=== PATIENT | male | born 1960 | race American Indian/Alaskan Native ===

== ENCOUNTER 2017-12-17 18:37 | Inpatient (IN) | payer SELFPAY ==
--- NOTE | 2017-12-17 19:24 | EDM.PDOC ---
ED HPI GENERAL MEDICAL PROBLEM - General Chief Complaint: Fever Stated Complaint: FLU SYMPTOMS,CHILLS Time Seen by Provider: 12/17/17 19:15 Source of Information: Reports: Patient, RN History Limitations: Reports: No Limitations - History of Present Illness INITIAL COMMENTS - FREE TEXT/NARRATIVE: 57 yo male presents with fever for nearly a week associated with a cough. Is a smoker. Has a BAXTER without stiff neck or vomiting. Not taking anything for his sx' s.. Has not been to his doctor. Not dizzy with standing. Has a ? subclavion port placed about a yr ago when he was being tx'd for Lyme's Dz. The port has been in disuse for about 6 mos and he just never went back to have it taken out. Onset Date: 12/11/17 Duration: Day(s):, Getting Worse Location: Reports: Head (headache), Chest (non-productive cough), Generalized. Denies: Face, Abdomen, Back Quality: Reports: Ache (headache) Severity: Moderate Improves with: Reports: None Worsens with: Reports: None Context: Reports: Other (unknown) Associated Symptoms: Reports: Cough, Fever/Chills, Headaches, Weakness. 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 Denies: Shortness of Breath, Wheezing, Pleuritic Chest Pain, Sputum, Hemoptysis Cardiovascular: Reports: No Symptoms GI/Abdominal: Reports: No Symptoms : Reports: No Symptoms Musculoskeletal: Reports: No Symptoms Skin: Reports: No Symptoms Neurological: Reports: No Symptoms ED EXAM, GENERAL - Physical Exam Exam: See Below Exam Limited By: No Limitations General Appearance: Alert, Lethargic, Thin Eye Exam: Bilateral Eye: Normal Inspection Ears: Normal External Exam, Normal Canal, Hearing Grossly Normal, Normal TMs Ear Exam: Bilateral Ear: Auricle Normal, Canal Normal, TM normal Nose: Normal Inspection, Normal Mucosa, No Blood Throat/Mouth: Normal Inspection, Normal Lips, Normal Oropharynx, Normal Voice, No Airway Compromise Head: Atraumatic, Normocephalic Neck: Normal Inspection, Supple, Non-Tender Respiratory/Chest: No Respiratory Distress, Lungs Clear, Normal Breath Sounds, No Accessory Muscle Use Cardiovascular: Regular Rate, Rhythm, No Edema, Tachycardia GI/Abdominal: Normal Bowel Sounds, Soft, Non-Tender, No Distention Back Exam: Normal Inspection. No: CVA Tenderness (R), CVA Tenderness (L) Extremities: Normal Inspection, Normal Range of Motion, Non-Tender, No Pedal Edema Neurological: Alert, Oriented, CN II-XII Intact, Normal Cognition, No Motor/ Sensory Deficits Psychiatric: Normal Affect, Normal Mood Skin Exam: Warm, Dry, Intact, Normal Color, No Rash Lymphatic: No Adenopathy Course - Vital Signs Last Recorded V/S: Last Vital Signs Temp 38.1 C 12/17/17 21:00 Pulse 63 12/17/17 21:00 Resp 20 12/17/17 21:00 BP 161/80 H 12/17/17 21:00 Pulse Ox 93 L 12/17/17 21:00 - Orders/Labs/Meds Orders: Active Orders 24 hr Category Date Time Status Chest 2V [CR] Stat Exams 12/17/17 19:33 Taken CULTURE BLOOD [BC] Stat Lab 12/17/17 19:47 Received CULTURE BLOOD [BC] Stat Lab 12/17/17 19:55 Received UA W/MICROSCOPIC [URIN] Stat Lab 12/17/17 20:58 Ordered Lactated Ringers [Ringers, Lactated] 1,000 ml Med 12/17/17 20:46 Active IV BOLUS Medication Orders Lactated Ringer's (Ringers, Lactated) 1,000 mls @ 1,000 mls/hr IV BOLUS ONE Stop: 12/17/17 21:45 Last Admin: 12/17/17 20:58 Dose: 1,000 mls/hr Labs: Laboratory Tests 12/17/17 12/17/17 12/17/17 Range/Units 19:17 19:20 20:31 WBC 30.1 H* (4.5-11.0) K/uL RBC 4.21 L (4.30-5.90) M/uL Hgb 11.9 L (12.0-15.0) g/dL Hct 35.0 L (40.0-54.0) % MCV 83 (80-98) fL MCH 28 (27-31) pg MCHC 34 (32-36) % Plt Count 178 (150-400) K/uL Sodium 129 L (140-148) mmol/L Potassium 3.7 (3.6-5.2) mmol/L Chloride 95 L (100-108) mmol/L Carbon Dioxide 22 (21-32) mmol/L Anion Gap 15.7 H (5.0-14.0) mmol/L BUN 26 H D (7-18) mg/dL Creatinine 2.1 H D (0.8-1.3) mg/dL Est Cr Clr Drug Dosing 43.62 mL/min Estimated GFR (MDRD) 33 L (>60) Glucose 159 H (74-106) mg/dL Lactic Acid 2.0 (0.4-2.0) mmol/L Calcium 8.0 L (8.5-10.1) mg/dL Meds: Medications Generic Name Dose Route Start Last Admin Trade Name Freq PRN Reason Stop Dose Admin Lactated Ringer's 1,000 mls @ 1,000 mls/hr 12/17/17 20:46 12/17/17 20:58 Ringers, Lactated IV 12/17/17 21:45 1,000 mls/hr BOLUS ONE Administration Discontinued Medications Generic Name Dose Route Start Last Admin Trade Name Freq PRN Reason Stop Dose Admin Acetaminophen 1,000 mg 12/17/17 19:34 12/17/17 19:55 Tylenol Extra Strength PO 12/17/17 19:35 1,000 mg ONETIME ONE Administration Lactated Ringer's 1,000 mls @ 1,000 mls/hr 12/17/17 19:34 12/17/17 19:50 Ringers, Lactated IV 12/17/17 20:33 1,000 mls/hr BOLUS ONE Administration - Radiology Interpretation Free Text/Narrative:: CXR-no acute findings Departure - Departure Time of Disposition: 21:15 Disposition: Admitted As Inpatient 68 Condition: Poor Clinical Impression: Dehydration, Medical non-compliance Central line infection Qualifiers: Encounter type: initial encounter Qualified Code(s): T80.219A - Unspecified infection due to central venous catheter, initial encounter - Discharge Information Referrals: PCP,None [Primary Care Provider] - Forms: ED Department Discharge - My Orders Last 24 Hours: My Active Orders 12/17/17 19:33 Chest 2V [CR] Stat 12/17/17 19:47 CULTURE BLOOD [BC] Stat 12/17/17 19:55 CULTURE BLOOD [BC] Stat 12/17/17 20:46 Lactated Ringers [Ringers, Lactated] 1,000 ml IV BOLUS 12/17/17 20:58 UA W/MICROSCOPIC [URIN] Stat - Assessment/Plan Last 24 Hours: My Active Orders 12/17/17 19:33 Chest 2V [CR] Stat 12/17/17 19:47 CULTURE BLOOD [BC] Stat 12/17/17 19:55 CULTURE BLOOD [BC] Stat 12/17/17 20:46 Lactated Ringers [Ringers, Lactated] 1,000 ml IV BOLUS 12/17/17 20:58 UA W/MICROSCOPIC [URIN] Stat
[2017-12-17] MEDS ORDERED: Acetaminophen 500 MG Tab PO ONE (19:34)
[2017-12-17] MEDS ORDERED: Lactated Ringers 1,000 ML IV ONE ×2 (19:34→20:46)
[2017-12-17] MEDS ORDERED: Bacitracin Oint 1 GM U/D Packet TOP ONE (21:17)
[2017-12-17] MEDS ORDERED: ceFAZolin 1 GM Vial ONE (22:17)
[2017-12-17] MEDS ORDERED: Sodium Chloride 0.9% 50 ML ONE (22:18)
--- NOTE | 2017-12-17 22:23 | PCM.HP ---
H&P History of Present Illness - General Admit Problem/Dx: Admission Diagnosis/Problem Admission Diagnosis/Problem Catheter-related bloodstream infection Source of Information: Patient (Patient extremely shy will not answer questions except for 1 word, yes or no or nods head.), Family (Significant other) History Limitations: Reports: Other (Reluctant to give history of present illness) - History of Present Illness Initial Comments - Free Text/Narative: 57 yo male presents with fever for nearly a week associated with a cough. Is a smoker approximately one pack per day, . Has a BAXTER without stiff neck or vomiting. Not taking anything for his sx's.. Has not been to his doctor. Not dizzy with standing. Has a ? subclavion port placed about a yr ago when he was being tx'd for Lyme's disease . The port has been in disuse for about 6 mos and he just never went back to have it taken out. While in the emergency room, his central line was removed by nurse practitioner. The area was cleansed with Betadine, central line sutures were dissolved due to large scab and mucus. The central line was easily removed, intact. Catheter tip was placed in sterile container sent for culture and sensitivity. Pressure applied to access site for 5 minutes, no further bleeding observed. Applied bacitracin and bandage. Area rechecked at 20 minutes no further bleeding is noted. Discussed hospital admission with Mr. sánchez and his partner agree with plan of care. Onset of Symptoms: Reports: Gradual Duration of Symptoms: Reports: Week(s): (1) Location: Reports: Generalized (Fever and chills, sweats.) Severity: Severe Improves with: Reports: None Worsens with: Reports: None Associated Symptoms: Reports: Diaphoresis, Fever/Chills, Headaches, Malaise - Related Data Allergies/Adverse Reactions: Allergies Allergy/AdvReac Type Severity Reaction Status Date / Time No Known Allergies Allergy Verified 12/17/17 18:56 Home Medications: Home Meds NK [No Known Home Meds] 01/29/16 [History] Past Medical History - Past Health History Medical/Surgical History: Denies Medical/Surgical History Genitourinary History: Reports: Dialysis, Other (See Below) 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 - Infectious Disease History Infectious Disease History: Reports: Other (See Below) Other Infectious Disease History: unable to obtain Social & Family History - Family History Family Medical History: Unobtainable Oncologic: Reports: Other (See Below) (Significant other reports no history of MRSA in patient or other family members.) - Tobacco Use Smoking Status *Q: Current Every Day Smoker Years of Tobacco use: 40 Packs/Tins Daily: 1 - Caffeine Use Caffeine Use: Reports: Coffee, Soda - Recreational Drug Use Recreational Drug Use: No - Living Situation & Occupation Living situation: Reports: with Significant Other H&P Review of Systems - Review of Systems: Review Of Systems: Unable To Obtain (Mr. Brown is a very difficult historian and answers questions and one-word yes or no or his significant other answers all questions.) General: Reports: Fever, Chills, Malaise, Decreased Appetite HEENT: Reports: No Symptoms Pulmonary: Reports: Cough, Other (Tobacco use one pack per day) Cardiovascular: Reports: No Symptoms Gastrointestinal: Reports: No Symptoms Genitourinary: Reports: No Symptoms Musculoskeletal: Reports: No Symptoms Skin: Reports: No Symptoms Psychiatric: Reports: No Symptoms Neurological: Reports: No Symptoms Hematologic/Lymphatic: Reports: No Symptoms Immunologic: Reports: No Symptoms Review of Systems Comment:: Patient's significant other reports history of Lyme's disease with antibiotic treatment 6 months, central line placed one year ago, has not been used for 6 months. Reports has not flushed Port-A-Cath or did any cares for the past 6 months. Exam - Exam Exam: See Below - Vital Signs Vital Signs: Last Vital Signs Temp 38.1 C 12/17/17 21:00 Pulse 63 12/17/17 21:00 Resp 20 12/17/17 21:00 BP 161/80 H 12/17/17 21:00 Pulse Ox 93 L 12/17/17 21:00 Weight: 96 kg - Exam General: Alert, Cooperative, Moderate Distress (Diaphoretic) HEENT: PERRLA, Conjunctiva Clear, EACs Clear, Hearing Intact, Mucosa Moist & [place]ier[place], Nares Patent, Normal Nasal Septum, Posterior Pharynx Clear, Pupils Equal, Pupils Reactive, TMs Clear Neck: Supple, Trachea Midline Lungs: Clear to Auscultation, Normal Respiratory Effort Cardiovascular: Regular Rate, Regular Rhythm, Normal S1, Normal S2 GI/Abdominal Exam: Normal Bowel Sounds, Soft, Non-Tender (Male) Exam: Deferred Rectal (Males) Exam: Deferred Back Exam: Normal Inspection, Full Range of Motion Extremities: Normal Inspection, Normal Range of Motion (N), Non-Tender, Pedal Edema Skin: Warm, Dry, Intact, Wound (From recent removal of central line) Neurological: Reflexes Equal Bilateral Neuro Extensive - Mental Status: Alert, Normal Mood/Affect Neuro Extensive - Motor, Sensory, Reflexes: Motor/Sensory Deficits Psychiatric: Alert - Patient Data Lab Results Last 24 hrs: Laboratory Results - last 24 hr 12/17/17 12/17/17 12/17/17 Range/Units 19:17 19:20 20:31 WBC 30.1 H* (4.5-11.0) K/uL RBC 4.21 L (4.30-5.90) M/uL Hgb 11.9 L (12.0-15.0) g/dL Hct 35.0 L (40.0-54.0) % MCV 83 (80-98) fL MCH 28 (27-31) pg MCHC 34 (32-36) % Plt Count 178 (150-400) K/uL Sodium 129 L (140-148) mmol/L Potassium 3.7 (3.6-5.2) mmol/L Chloride 95 L (100-108) mmol/L Carbon Dioxide 22 (21-32) mmol/L Anion Gap 15.7 H (5.0-14.0) mmol/L BUN 26 H D (7-18) mg/dL Creatinine 2.1 H D (0.8-1.3) mg/dL Est Cr Clr Drug Dosing 43.62 mL/min Estimated GFR (MDRD) 33 L (>60) Glucose 159 H (74-106) mg/dL Lactic Acid 2.0 (0.4-2.0) mmol/L Calcium 8.0 L (8.5-10.1) mg/dL Urine Color Urine Appearance Urine pH (4.5-8.0) Ur Specific [place] (1.008-1.030) Urine Protein (NEGATIVE) mg/dL Urine Glucose (UA) (NEGATIVE) mg/dL Urine Ketones (NEGATIVE) mg/dL Urine Occult Blood (NEGATIVE) Urine Nitrite (NEGAITVE) Urine Bilirubin (NEGATIVE) Urine Urobilinogen (NORMAL) mg/dL Ur Leukocyte Esterase (NEGATIVE) Urine RBC (0-5) Urine WBC (0-5) Ur Epithelial Cells Amorphous Sediment Urine Bacteria Urine Mucus 12/17/17 Range/Units 20:58 WBC (4.5-11.0) K/uL RBC (4.30-5.90) M/uL Hgb (12.0-15.0) g/dL Hct (40.0-54.0) % MCV (80-98) fL MCH (27-31) pg MCHC (32-36) % Plt Count (150-400) K/uL Sodium (140-148) mmol/L Potassium (3.6-5.2) mmol/L Chloride (100-108) mmol/L Carbon Dioxide (21-32) mmol/L Anion Gap (5.0-14.0) mmol/L BUN (7-18) mg/dL Creatinine (0.8-1.3) mg/dL Est Cr Clr Drug Dosing mL/min Estimated GFR (MDRD) (>60) Glucose (74-106) mg/dL Lactic Acid (0.4-2.0) mmol/L Calcium (8.5-10.1) mg/dL Urine Color [place] Urine Appearance Clear Urine pH 5.0 (4.5-8.0) Ur Specific [place] 1.020 (1.008-1.030) Urine Protein 100 H (NEGATIVE) mg/dL Urine Glucose (UA) Normal (NEGATIVE) mg/dL Urine Ketones Negative (NEGATIVE) mg/dL Urine Occult Blood Large (NEGATIVE) Urine Nitrite Negative (NEGAITVE) Urine Bilirubin Moderate (NEGATIVE) Urine Urobilinogen 8 (NORMAL) mg/dL Ur Leukocyte Esterase Negative (NEGATIVE) Urine RBC 10-20 H (0-5) Urine WBC 0-5 (0-5) Ur Epithelial Cells Not seen Amorphous Sediment Few Urine Bacteria Not seen Urine Mucus Not seen Result Diagrams: 12/17/17 19:17 12/17/17 19:20 *Q Meaningful Use (ADM) - VTE *Q VTE Criteria *Q: - Stroke *Q Stroke Criteria *Q: - AMI *Q AMI Criteria *Q: - Problem List (1) Central line infection SNOMED Code(s): 329554016 ICD Code: T80.219A - UNSP INFECTION DUE TO CENTRAL VENOUS CATHETER, INIT ENCNTR Status: Acute Priority: High Current Visit: Yes Qualifiers: Encounter type: initial encounter Qualified Code(s): T80.219A - Unspecified infection due to central venous catheter, initial encounter (2) Dehydration SNOMED Code(s): 46869109 ICD Code: E86.0 - DEHYDRATION Status: Acute Priority: High Current Visit: Yes (3) Kidney disease Status: Acute Current Visit: Yes Problem List Initiated/Reviewed/Updated: Yes Orders Last 24hrs: Active Orders 24 hr Category Date Time Status Patient Status Manage Transfer [TRANSFER] Routine ADT 12/17/17 21:49 Active Chest 2V [CR] Stat Exams 12/17/17 19:33 Taken CULTURE BLOOD [BC] Stat Lab 12/17/17 19:47 Received CULTURE BLOOD [BC] Stat Lab 12/17/17 19:55 Received CULTURE CATHETER TIP [RM] Stat Lab 12/17/17 21:43 Received ceFAZolin [Ancef] 1 gm Med 12/18/17 04:00 Ordered Sodium Chloride 0.9% [Normal Saline] 50 ml IV Q6HR ceFAZolin [Ancef] 1,000 mg Med 12/17/17 21:30 Active Sodium Chloride 0.9% [Normal Saline] 50 ml IV Q6H Resuscitation Status Routine Resus Stat 12/17/17 22:07 Ordered Medication Orders Cefazolin Sodium 1,000 mg/ (Sodium Chloride) 50 mls @ 100 mls/hr IV Q6H JENN Cefazolin Sodium 1 gm/ Sodium (Chloride) 50 mls @ 100 mls/hr IV Q6HR JENN Assessment/Plan Comment:: ASSESSMENT / PLAN This is a 57-year-old male presents emergency room with his significant other, reported a one-week history of fever, chills and sweating. History was obtained from his significant other as patient would only answer yes or no questions, appears to be extremely shy. It was also noted during ER evaluation patient had a right subclavian central line that had had not been used for the past 6 months. His significant other reports central line placed one year ago for treatment of Lyme's disease, had 6 months of IV therapy, central line has not been in use for the past 6 months. There is no history of MRSA infection in patient or other family members. Labs showed a elevated white count at 30.1, hemoglobin 11.9, hematocrit 35, sodium 129, Potassium 3.7, chloride 95, ion gap 15.7, BUN 26, creatinine 2.1, GFR 33, lactic acid 2.0, calcium 8, urine orange positive large blood positive RBCs 10-20, blood cultures 2 pending, central central line catheter culture and sensitivity pending. Medications , lactated Ringer's 2 L , maintenance IV fluids normal saline at 125ml/hr., Ancef 1 g IV every 6 hours. Plan admission to hospital for further care and treatment . central line infection, dehydration -Admit to [address] [place] [address] for further monitoring -IV Fluids for rehydration NS at 125 mL per hour -IV Antibiotic: Ancef 1 gram IV every 6 hours. -Advise to notify nurses of any chest pain or other symptoms -blood cultures x2 pending, catheter tip culture pending -And a.m. labs: CBC, BMP Kidney disease -History of acute renal failure with dialysis. -monitor I & O -Creatinine 2.1 and GFR 33 -Recheck BMP in a.m. Tobacco use -Nicotine patch 21 mcg daily Maintenance issues -Orders home meds: no chronic meds -Nutrition: regular diet -Varner catheter not indicated at this time -DVT: Lovenox 40 mg subcut daily -PPI: IV Protonix 40mg daily CODE STATUS: FULL CODE Admission status: Admit to [address] [place] [address] Admission justification. This patient will be admitted for inpatient services and is medically appropriate meeting medical necessity for inpatient admission as outlined in my documentation. I reasonably expect the patient will require inpatient services that span. Time over 2 midnights. I reasonably expect this patient to be discharged or transferred within 96 hours after admission to the critical access hospital. Disposition: Home with Family [facility] Hospitalist: Dr. Naqvi
[2017-12-17] MEDS ORDERED: LORazepam 2 MG/ML SDV IV PRN (22:45)
[2017-12-17] MEDS ORDERED: Ondansetron 4 MG Tab.DIS PO PRN (22:45)
[2017-12-17] MEDS ORDERED: Docusate Sodium 100 MG Cap PO PRN (22:45)
[2017-12-17] MEDS ORDERED: Zolpidem 5 MG Tab PO PRN (22:45)
[2017-12-17] MEDS ORDERED: Morphine 2 MG/ML Syringe IVPUSH PRN (22:45)
[2017-12-17] MEDS ORDERED: oxyCODONE 5 MG Tab PO PRN (22:45)
[2017-12-17] MEDS ORDERED: Acetaminophen 325 MG Tab PO PRN (22:45)
[2017-12-17] MEDS ORDERED: Albuterol 0.083% 2.5 MG/3 ML Neb Soln NEB PRN (22:45)
[2017-12-17] MEDS ORDERED: Ondansetron 4 MG/2 ML SDV IV PRN (22:45)
[2017-12-17] MEDS: Sodium Chloride 0.9% 1,000 ML IV SCH (23:04)
[2017-12-17] MEDS: Ibuprofen 600 MG Tab PO PRN (23:10)
[2017-12-17] MEDS: Nicotine 21 MG/24 Hr Patch TRDERM SCH (23:10)
[2017-12-18] MEDS ORDERED: ceFAZolin 1 GM in Sodium Chloride 0.9% 50 ML IV SCH (04:00)
[2017-12-18] MEDS ORDERED: ceFAZolin 1 GM Vial ONE (04:34)
[2017-12-18] MEDS ORDERED: Sodium Chloride 0.9% 50 ML ONE (04:36)
--- NOTE | 2017-12-18 06:40 | PCM.SN ---
- Free Text/Narrative Note: Time 06:20, call from 2 [facility] O: positive blood cultures x2; gram positive cocci afebrile, labs improved, wbc decreased to 25.9 a: central line infection p; continue Ancef 1 gram every 6 hours. continue present plan of care.
[2017-12-18] MEDS: Sodium Chloride 0.9% 1,000 ML IV SCH (07:21)
[2017-12-18] MEDS ORDERED: Pantoprazole 40 MG Vial IVPUSH SCH (09:00)
[2017-12-18] MEDS ORDERED: Enoxaparin 40 MG/0.4 ML Syringe SUBCUT SCH (09:00)
[2017-12-18] MEDS: Nicotine 21 MG/24 Hr Patch TRDERM SCH (09:07)
[2017-12-18] MEDS: ceFAZolin 1 GM in Premix Bag 1 BAG IV SCH ×2 (09:08→15:22)
--- NOTE | 2017-12-18 11:51 | PCM.PN ---
- General Info Date of Service: 12/18/17 Subjective Update: Mr. Corrales is a 57-year-old gentleman who was admitted last night through the emergency department with weakness, leukocytosis, fever, secondary to a central line infection. He had a previous history of Lyme's disease in the central line was placed for IV antibiotic therapy. Antibiotics were discontinued approximately 6 months ago and he never returned to have the central line removed. Over the past few days is become progressively more weak. Evaluation in the emergency department showed no other obvious source of infection. Central line was removed and the tip has been cultured, blood cultures were also obtained and are growing gram-positive cocci. White count has improved with current antibiotic therapy and he has remained afebrile. Functional Status: Reports: Tolerating Diet, Urinating - Review of Systems General: Reports: Weakness. Denies: Fever, Chills Pulmonary: Reports: No Symptoms Cardiovascular: Reports: No Symptoms Gastrointestinal: Reports: No Symptoms - Patient Data Vitals - Most Recent: Last Vital Signs Temp 97.9 F 12/18/17 10:49 Pulse 116 H 12/18/17 10:49 Resp 20 12/18/17 10:49 BP 148/114 H 12/18/17 10:49 Pulse Ox 97 12/18/17 10:49 Weight - Most Recent: 211 lb 10.3 oz I&O - Last 24 Hours: Intake & Output 12/17/17 12/18/17 12/18/17 22:59 06:59 14:59 Intake Total 1392 Balance 1392 Lab Results Last 24 Hours: Laboratory Results - last 24 hr 12/18/17 12/18/17 Range/Units 05:32 05:32 WBC 25.9 H (4.5-11.0) K/uL RBC 3.81 L (4.30-5.90) M/uL Hgb 11.0 L (12.0-15.0) g/dL Hct 31.9 L (40.0-54.0) % MCV 84 (80-98) fL MCH 29 (27-31) pg MCHC 35 (32-36) % Plt Count 142 L (150-400) K/uL Neut % (Auto) 91 H (36-66) % Lymph % (Auto) 3 L (24-44) % [place] % (Auto) 7 H (2-6) % Eos % (Auto) 0 L (2-4) % Baso % (Auto) 0 (0-1) % Sodium 135 L (140-148) mmol/L Potassium 3.4 L (3.6-5.2) mmol/L Chloride 102 (100-108) mmol/L Carbon Dioxide 23 (21-32) mmol/L Anion Gap 13.4 (5.0-14.0) mmol/L BUN 28 H (7-18) mg/dL Creatinine 1.9 H (0.8-1.3) mg/dL Est Cr Clr Drug Dosing 48.22 mL/min Estimated GFR (MDRD) 37 L (>60) Glucose 132 H (74-106) mg/dL Calcium 7.6 L (8.5-10.1) mg/dL Med Orders - Current: Current Medications Acetaminophen (Tylenol) 650 mg PO Q4H PRN PRN Reason: Pain (Mild 1-3)/fever Albuterol (Proventil Neb Soln) 2.5 mg NEB Q4H PRN PRN Reason: Shortness Of Breath/wheezing Docusate Sodium (Colace) 100 mg PO BID PRN PRN Reason: Constipation Enoxaparin Sodium (Lovenox) 40 mg SUBCUT DAILY [facility] Last Admin: 12/18/17 09:08 Dose: 40 mg Cefazolin Sodium/Dextrose 1 gm (/ Premix) 50 mls @ 100 mls/hr IV Q6H [facility] Last Admin: 12/18/17 09:08 Dose: 100 mls/hr Ibuprofen (Motrin) 600 mg PO Q6H PRN PRN Reason: Pain/Fever Last Admin: 12/17/17 23:10 Dose: 600 mg Lorazepam (Ativan) 1 mg IV Q6H PRN PRN Reason: Nausea/Vomiting Morphine Sulfate (Morphine) 2 mg IVPUSH Q2H PRN PRN Reason: Pain (severe 7-10) Nicotine (Habitrol) 21 mg TRDERM DAILY [facility] Last Admin: 12/18/17 09:07 Dose: 21 mg Ondansetron HCl (Zofran Odt) 4 mg PO Q6H PRN PRN Reason: Nausea able to take PO Ondansetron HCl (Zofran) 4 mg IV Q4H PRN PRN Reason: Nausea/Vomiting Oxycodone HCl (Oxycodone) 5 mg PO Q4H PRN PRN Reason: Pain (moderate 4-6) Pantoprazole Sodium (Protonix Iv) 40 mg IVPUSH DAILY [facility] Last Admin: 12/18/17 09:07 Dose: 40 mg Potassium Chloride (Klor-Con M20) 40 meq PO ONETIME ONE Stop: 12/18/17 11:44 Potassium Chloride (Klor-Con M20) 40 meq PO ONETIME ONE Stop: 12/18/17 17:01 Zolpidem Tartrate (Ambien) 5 mg PO BEDTIME PRN PRN Reason: Sleep Discontinued Medications Acetaminophen (Tylenol Extra Strength) 1,000 mg PO ONETIME ONE Stop: 12/17/17 19:35 Last Admin: 12/17/17 19:55 Dose: 1,000 mg Bacitracin (Bacitracin Oint 1 Gm) 1 dose TOP ONETIME ONE Stop: 12/17/17 21:18 Last Admin: 12/17/17 21:40 Dose: 1 dose Cefazolin Sodium (Ancef) Confirm Administered Dose 1 gm .ROUTE .STK-MED ONE Stop: 12/18/17 04:35 Last Admin: 12/18/17 04:42 Dose: Not Given Lactated Ringer's (Ringers, Lactated) 1,000 mls @ 1,000 mls/hr IV BOLUS ONE Stop: 12/17/17 20:33 Last Admin: 12/17/17 19:50 Dose: 1,000 mls/hr Lactated Ringer's (Ringers, Lactated) 1,000 mls @ 1,000 mls/hr IV BOLUS ONE Stop: 12/17/17 21:45 Last Admin: 12/17/17 20:58 Dose: 1,000 mls/hr Cefazolin Sodium 1,000 mg/ (Sodium Chloride) 50 mls @ 100 mls/hr IV Q6H [facility] Last Admin: 12/17/17 22:31 Dose: 100 mls/hr Sodium Chloride (Normal Saline) Confirm Administered Dose 50 mls @ as directed .ROUTE .STK-MED ONE Stop: 12/17/17 22:19 Last Admin: 12/17/17 22:35 Dose: Not Given Sodium Chloride (Normal Saline) 1,000 mls @ 125 mls/hr IV ASDIRECTED [facility] Last Admin: 12/18/17 07:21 Dose: 125 mls/hr Cefazolin Sodium 1,000 mg/ (Sodium Chloride) 50 mls @ 100 mls/hr IV Q6H [facility] Last Admin: 12/18/17 04:38 Dose: 100 mls/hr Sodium Chloride (Normal Saline) Confirm Administered Dose 50 mls @ as directed .ROUTE .STK-MED ONE Stop: 12/18/17 04:37 Last Admin: 12/18/17 04:42 Dose: Not Given - Exam Quality Assessment: DVT Prophylaxis General: Alert, Oriented, Cooperative, No Acute Distress Lungs: Clear to Auscultation, Normal Respiratory Effort Cardiovascular: Regular Rate, Regular Rhythm, No Murmurs GI/Abdominal Exam: Soft, Non-Tender, No Organomegaly, No Distention Extremities: Non-Tender, No Pedal Edema - Problem List Review Problem List Initiated/Reviewed/Updated: Yes - My Orders Last 24 Hours: My Active Orders 12/18/17 11:42 Convert IV to Saline Lock [OM.PC] Routine 12/18/17 11:43 Potassium Chloride [Klor-Con M20] 40 meq PO ONETIME ONE 12/18/17 17:00 Potassium Chloride [Klor-Con M20] 40 meq PO ONETIME ONE 12/19/17 05:00 BASIC METABOLIC PANEL,BMP [CHEM] Timed CBC WITH AUTO DIFF [HEME] Timed - Plan Plan:: ASSESSMENT / PLAN CENTRAL LINE INFECTION, DEHYDRATION-improved since admission, hemodynamically stable and afebrile. Cultures growing gram positive cocci, further ID and sensitivities pending -Saline lock IV -IV Antibiotic: Ancef 1 gram IV every 6 hours. -blood cultures x2 pending, catheter tip culture pending Kidney disease-renal function modestly improved since admission with hydration -Continue to closely monitor urine output and renal function Tobacco use -Nicotine patch 21 mcg daily Maintenance issues -Nutrition: regular diet -Varner catheter not indicated at this time -DVT: Lovenox 40 mg subcut daily -PPI: IV Protonix 40mg daily CODE STATUS: FULL CODE Admission status: Admit to [address] [place] [address] justification. This patient will be admitted for inpatient services and is medically appropriate meeting medical necessity for inpatient admission as outlined in my documentation. I reasonably expect the patient will require inpatient services that span. Time over 2 midnights. I reasonably expect this patient to be discharged or transferred within 96 hours after admission to the . Disposition: Home with Family [facility]: Dr. Naqvi
[2017-12-18] MEDS ORDERED: Potassium Chloride 20 MEQ Tab.ER PO ONE ×2 (12:10→17:00)
[2017-12-18] MEDS ORDERED: Lactated Ringers 1,000 ML IV ONE ×2 (13:45→19:30)
[2017-12-18] MEDS: Ibuprofen 600 MG Tab PO PRN (18:31)
[2017-12-18] MEDS ORDERED: Acetaminophen 1,000 MG in Premix Bag 1 BAG IV ONE (19:18)
[2017-12-18] MEDS: Lactated Ringers 1,000 ML IV SCH ×2 (19:31→21:56)
[2017-12-18] MEDS ORDERED: Vancomycin 1 GM SDV IV SCH (20:00)
[2017-12-18] MEDS ORDERED: Diltiazem 25 MG/5 ML SDV IVPUSH ONE ×2 (20:43→22:16)
[2017-12-18] MEDS ORDERED: Diltiazem 100 MG in Sodium Chloride 0.9% 100 ML IV SCH (20:45)
[2017-12-18] MEDS ORDERED: Diltiazem 25 MG/5 ML SDV ONE (22:21)
[2017-12-18 22:28] VITALS: BP 143/94
--- NOTE | 2017-12-18 22:29 | PCM.DCSUM1 ---
Discharge Summary - Hospital Course Brief History: Mr. Corrales is a 57-year-old gentleman who was admitted through the emergency department with fever, weakness, leukocytosis, secondary to a central line infection, present on admission. - Discharge Data Discharge Date: 12/18/17 Discharge Disposition: DC/Tfer to Acute Hospital 02 Condition: Serious - Discharge Diagnosis/Problem(s) (1) CKD (chronic kidney disease) stage 3, GFR 30-59 ml/min SNOMED Code(s): 090235740 ICD Code: N18.3 - CHRONIC KIDNEY DISEASE, STAGE 3 (MODERATE) Status: Acute Current Visit: Yes (2) NSTEMI (non-ST elevated myocardial infarction) SNOMED Code(s): 708101115 ICD Code: I21.4 - NON-ST ELEVATION (NSTEMI) MYOCARDIAL INFARCTION Status: Acute Current Visit: Yes (3) Sepsis SNOMED Code(s): 21638606 ICD Code: A41.9 - SEPSIS, UNSPECIFIED ORGANISM Status: Acute Current Visit: No (4) Atrial fibrillation with rapid ventricular response SNOMED Code(s): 435893058973670 ICD Code: I48.91 - UNSPECIFIED ATRIAL FIBRILLATION Status: Acute Current Visit: No (5) Dehydration SNOMED Code(s): 21631605 ICD Code: E86.0 - DEHYDRATION Status: Acute Priority: High Current Visit: Yes (6) Central line infection SNOMED Code(s): 870033521 ICD Code: T80.219A - UNSP INFECTION DUE TO CENTRAL VENOUS CATHETER, INIT ENCNTR Status: Acute Priority: High Current Visit: Yes Qualifiers: Encounter type: initial encounter Qualified Code(s): T80.219A - Unspecified infection due to central venous catheter, initial encounter - Patient Summary/Data Hospital Course: Mr. Corrales is a 57-year-old gentleman who is admitted through the emergency department on the evening of December 17 with fever and weakness secondary to a central line infection(present on admission) and sepsis. He had had a catheter placed in the right subclavian vein approximately one year ago for dialysis renal function improved and the catheter did not been used over the past 6 months. On evaluation in the emergency department there were no obvious infiltrates on chest x-ray or evidence of urinary infection. Abdominal exam was unremarkable and there was no other obvious source of infection identified. White blood cell count was significantly elevated at 30,000. Blood cultures were obtained in the emergency department and the central line was removed. After removal the tip was sent for culture. He was given IV fluids and started on IV antibiotic therapy with cefazolin. He was found to have elevated creatinine of 1.9 with a GFR of 33 at the time of admission, baseline renal function unknown. By the following morning he was feeling somewhat improved and had remained afebrile through the night, white blood cell count had improved to 25,000. He was able to eat breakfast and denied other significant symptoms. On the evening of transfer he developed recurrent temperature elevation to 103.7. Associated with this was an increase in heart rate to the range of 160-170. He denied any symptoms of chest pain or pressure and denied shortness of breath. Respiratory rate did increase during this period of time into the mid 30s. He was given Tylenol and IV fluids. EKG was obtained which showed atrial fibrillation with rapid ventricular response. These episodes along was discontinued and he was started on vancomycin and meropenem pending final culture results. He was transferred to the intensive care unit and given a bolus dose of diltiazem at 20 mg and started on a continuous infusion of diltiazem at 5 mg per hour. Initially this did result in significant improvement in heart rate down close to 100. Prior to transfer heart rate crept up into the 120s and 130s, he was given additional bolus of diltiazem at 10 mg with the continuous rate increased to 10 mg per hour. Laboratory studies were obtained for follow-up his white count was noted to be further improved to 22,000 and his renal function and improved with a creatinine of 1.7 and a GFR of 39. Lactic acid level was found to be within normal range. Troponin level was obtained and found to be elevated at 1.14. With the elevated troponin level he was felt to have experienced a non- ST segment myocardial infarction. Hospitalist on-call at [facility] in [place] was contacted Dr. Novak who is agreed to accept patient in transfer for ongoing management and further cardiac evaluation. He will be transferred via [facility] ambulance. - Patient Instructions Diet: Regular Diet as Tolerated Activity: As Tolerated Other/Special Instructions: Patient will be transferred to [facility] in [facility] via [facility] - Discharge Plan Home Medications: Home Meds Diltiazem [Cardizem] 100 mg IV TITRATE vial 12/18/17 [Rx] Enoxaparin [Lovenox] 40 mg SUBCUT DAILY syringe 12/18/17 [Rx] Meropenem [Merrem] 1 gm IV Q8H sdv 12/18/17 [Rx] Pantoprazole [ProTONIX] 40 mg PO ACBREAKFAST tab.cr 12/18/17 [Rx] Vancomycin 1.5 gm IV Q24H sdv 12/18/17 [Rx] Referrals: PCP,None [Primary Care Provider] - - Patient Data Vitals - Most Recent: Last Vital Signs Temp 96.3 F 12/18/17 22:15 Pulse 118 H 12/18/17 22:23 Resp 31 H 12/18/17 22:15 BP 143/94 H 12/18/17 22:23 Pulse Ox 100 12/18/17 22:15 Weight - Most Recent: 211 lb 10.3 oz I&O - Last 24 hours: Intake & Output 12/18/17 12/18/17 12/18/17 06:59 14:59 22:59 Intake Total 1392 4780 Balance 1392 4780 Lab Results - Last 24 hrs: Laboratory Results - last 24 hr 12/18/17 12/18/17 12/18/17 Range/Units 05:32 05:32 21:02 WBC 25.9 H 22.6 H (4.5-11.0) K/uL RBC 3.81 L 3.74 L (4.30-5.90) M/uL Hgb 11.0 L 10.5 L (12.0-15.0) g/dL Hct 31.9 L 31.2 L (40.0-54.0) % MCV 84 83 (80-98) fL MCH 29 28 (27-31) pg MCHC 35 34 (32-36) % Plt Count 142 L 156 (150-400) K/uL Neut % (Auto) 91 H 90 H (36-66) % Lymph % (Auto) 3 L 3 L (24-44) % [place] % (Auto) 7 H 7 H (2-6) % Eos % (Auto) 0 L 0 L (2-4) % Baso % (Auto) 0 0 (0-1) % Sodium 135 L (140-148) mmol/L Potassium 3.4 L (3.6-5.2) mmol/L Chloride 102 (100-108) mmol/L Carbon Dioxide 23 (21-32) mmol/L Anion Gap 13.4 (5.0-14.0) mmol/L BUN 28 H (7-18) mg/dL Creatinine 1.9 H (0.8-1.3) mg/dL Est Cr Clr Drug Dosing 48.22 mL/min Estimated GFR (MDRD) 37 L (>60) Glucose 132 H (74-106) mg/dL Lactic Acid (0.4-2.0) mmol/L Calcium 7.6 L (8.5-10.1) mg/dL Troponin I (0.000-0.056) ng/mL 12/18/17 12/18/17 Range/Units 21:02 21:02 WBC (4.5-11.0) K/uL RBC (4.30-5.90) M/uL Hgb (12.0-15.0) g/dL Hct (40.0-54.0) % MCV (80-98) fL MCH (27-31) pg MCHC (32-36) % Plt Count (150-400) K/uL Neut % (Auto) (36-66) % Lymph % (Auto) (24-44) % [place] % (Auto) (2-6) % Eos % (Auto) (2-4) % Baso % (Auto) (0-1) % Sodium 135 L (140-148) mmol/L Potassium 4.4 (3.6-5.2) mmol/L Chloride 104 (100-108) mmol/L Carbon Dioxide 20 L (21-32) mmol/L Anion Gap 15.4 H (5.0-14.0) mmol/L BUN 27 H (7-18) mg/dL Creatinine 1.8 H (0.8-1.3) mg/dL Est Cr Clr Drug Dosing 50.90 mL/min Estimated GFR (MDRD) 39 L (>60) Glucose 120 H (74-106) mg/dL Lactic Acid 1.6 (0.4-2.0) mmol/L Calcium 7.6 L (8.5-10.1) mg/dL Troponin I 1.145 H* (0.000-0.056) ng/mL Med Orders - Current: Current Medications Acetaminophen (Tylenol) 650 mg PO Q4H PRN PRN Reason: Pain (Mild 1-3)/fever Albuterol (Proventil Neb Soln) 2.5 mg NEB Q4H PRN PRN Reason: Shortness Of Breath/wheezing Docusate Sodium (Colace) 100 mg PO BID PRN PRN Reason: Constipation Enoxaparin Sodium (Lovenox) 40 mg SUBCUT DAILY [facility] Last Admin: 12/18/17 09:08 Dose: 40 mg Meropenem 1 gm/ Sodium (Chloride) 50 mls @ 100 mls/hr IV Q8H [facility] Last Admin: 12/18/17 19:39 Dose: 100 mls/hr Lactated Ringer's (Ringers, Lactated) 1,000 mls @ 125 mls/hr IV ASDIRECTED [facility] Last Admin: 12/18/17 21:56 Dose: 125 mls/hr Vancomycin HCl 1.5 gm/ Sodium (Chloride) 250 mls @ 166.667 mls/hr IV Q24H [facility] Last Admin: 12/18/17 20:49 Dose: 166.667 mls/hr Diltiazem HCl 100 mg/ Sodium (Chloride) 100 mls @ 5 mls/hr IV TITRATE [facility]; 5 MG /HR PRN Reason: Protocol Last Titration: 12/18/17 22:18 Dose: 10 mg/hr, 10 mls/hr Ibuprofen (Motrin) 600 mg PO Q6H PRN PRN Reason: Pain/Fever Last Admin: 12/18/17 18:31 Dose: 600 mg Lorazepam (Ativan) 1 mg IV Q6H PRN PRN Reason: Nausea/Vomiting Morphine Sulfate (Morphine) 2 mg IVPUSH Q2H PRN PRN Reason: Pain (severe 7-10) Nicotine (Habitrol) 21 mg TRDERM DAILY [facility] Last Admin: 12/18/17 09:07 Dose: 21 mg Ondansetron HCl (Zofran Odt) 4 mg PO Q6H PRN PRN Reason: Nausea able to take PO Ondansetron HCl (Zofran) 4 mg IV Q4H PRN PRN Reason: Nausea/Vomiting Oxycodone HCl (Oxycodone) 5 mg PO Q4H PRN PRN Reason: Pain (moderate 4-6) Pantoprazole Sodium (Protonix) 40 mg PO ACBREAKFAST [facility] Vancomycin HCl (Vancomycin) 0 gm IV .PHARMACY TO DOSE [facility] Zolpidem Tartrate (Ambien) 5 mg PO BEDTIME PRN PRN Reason: Sleep Discontinued Medications Acetaminophen (Tylenol Extra Strength) 1,000 mg PO ONETIME ONE Stop: 12/17/17 19:35 Last Admin: 12/17/17 19:55 Dose: 1,000 mg Bacitracin (Bacitracin Oint 1 Gm) 1 dose TOP ONETIME ONE Stop: 12/17/17 21:18 Last Admin: 12/17/17 21:40 Dose: 1 dose Cefazolin Sodium (Ancef) Confirm Administered Dose 1 gm .ROUTE .STK-MED ONE Stop: 12/18/17 04:35 Last Admin: 12/18/17 04:42 Dose: Not Given Diltiazem HCl (Diltiazem) 20 mg IVPUSH ONETIME ONE Stop: 12/18/17 20:44 Last Admin: 12/18/17 21:00 Dose: 20 mg Diltiazem HCl (Diltiazem) 10 mg IVPUSH ONETIME ONE Stop: 12/18/17 22:17 Last Admin: 12/18/17 22:23 Dose: 10 mg Diltiazem HCl (Diltiazem) Confirm Administered Dose 25 mg .ROUTE .STK-MED ONE Stop: 12/18/17 22:22 Lactated Ringer's (Ringers, Lactated) 1,000 mls @ 1,000 mls/hr IV BOLUS ONE Stop: 12/17/17 20:33 Last Admin: 12/17/17 19:50 Dose: 1,000 mls/hr Lactated Ringer's (Ringers, Lactated) 1,000 mls @ 1,000 mls/hr IV BOLUS ONE Stop: 12/17/17 21:45 Last Admin: 12/17/17 20:58 Dose: 1,000 mls/hr Cefazolin Sodium 1,000 mg/ (Sodium Chloride) 50 mls @ 100 mls/hr IV Q6H [facility] Last Admin: 12/17/17 22:31 Dose: 100 mls/hr Sodium Chloride (Normal Saline) Confirm Administered Dose 50 mls @ as directed .ROUTE .STK-MED ONE Stop: 12/17/17 22:19 Last Admin: 12/17/17 22:35 Dose: Not Given Sodium Chloride (Normal Saline) 1,000 mls @ 125 mls/hr IV ASDIRECTED [facility] Last Admin: 12/18/17 07:21 Dose: 125 mls/hr Cefazolin Sodium 1,000 mg/ (Sodium Chloride) 50 mls @ 100 mls/hr IV Q6H [facility] Last Admin: 12/18/17 04:38 Dose: 100 mls/hr Sodium Chloride (Normal Saline) Confirm Administered Dose 50 mls @ as directed .ROUTE .STK-MED ONE Stop: 12/18/17 04:37 Last Admin: 12/18/17 04:42 Dose: Not Given Cefazolin Sodium/Dextrose 1 gm (/ Premix) 50 mls @ 100 mls/hr IV Q6H [facility] Last Admin: 12/18/17 15:22 Dose: 100 mls/hr Lactated Ringer's (Ringers, Lactated) 1,000 mls @ 500 mls/hr IV ASDIRECTED ONE Stop: 12/18/17 15:44 Last Admin: 12/18/17 13:41 Dose: 500 mls/hr Acetaminophen 1,000 mg/ Premix 100 mls @ 400 mls/hr IV NOW ONE Stop: 12/18/17 19:32 Last Admin: 12/18/17 19:25 Dose: 400 mls/hr Lactated Ringer's (Ringers, Lactated) 1,000 mls @ 500 mls/hr IV ONETIME ONE Stop: 12/18/17 21:29 Last Admin: 12/18/17 19:31 Dose: 500 mls/hr Pantoprazole Sodium (Protonix Iv) 40 mg IVPUSH DAILY [facility] Last Admin: 12/18/17 09:07 Dose: 40 mg Potassium Chloride (Klor-Con M20) 40 meq PO ONETIME ONE Stop: 12/18/17 12:11 Last Admin: 12/18/17 13:07 Dose: 40 meq Potassium Chloride (Klor-Con M20) 40 meq PO ONETIME ONE Stop: 12/18/17 17:01 Last Admin: 12/18/17 16:13 Dose: 40 meq - Exam Quality Assessment: Reports: Supplemental Oxygen, DVT Prophylaxis General: Reports: Alert, Oriented, Cooperative Lungs: Reports: Clear to Auscultation, Decreased Breath Sounds. Denies: Rales, Rhonchi, Wheezing Cardiovascular: Reports: Irregular Rhythm, Tachycardia GI/Abdominal Exam: Soft, Non-Tender, No Organomegaly, No Distention Extremities: Non-Tender, No Pedal Edema Skin: Reports: Warm, Dry *Q Meaningful Use (DIS) - VTE *Q VTE Criteria *Q: - Stroke *Q Stroke Criteria *Q: - AMI *Q AMI Criteria *Q:
[2017-12-19] MEDS ORDERED: Pantoprazole 40 MG Tab.CR PO SCH (07:30)
--- NOTE | 2017-12-19 09:22 | CR ---
Cardiomegaly. Right IJ catheter. Mild interstitial thickening stable. Correlate for mild vascular con gestion. No focal consolidation.
--- NOTE | 2017-12-19 09:23 | CR ---
Removal of the right IJ catheter. No pneumothorax. Mild cardiomegaly. No focal consolidation. Mild va scular congestion.
== END 2017-12-18 22:55 | DRG 871 ==
LOC: JP.ED 18:37 → JP.MS 21:49 → JP.ICU 12-18 20:28
PROVIDERS: ADMIT Hospitalist; ATTEND Hospitalist
DX: A41.9 Sepsis, unspecified organism (principal); I21.4 Non-ST elevation (NSTEMI) myocardial infarction; T80.219A Unspecified infection due to central venous catheter, initial encounter; E86.0 Dehydration; N18.3 Chronic kidney disease, stage 3 (moderate); I48.91 Unspecified atrial fibrillation; F17.210 Nicotine dependence, cigarettes, uncomplicated; Z86.19 Personal history of other infectious and parasitic diseases
CPT/HCPCS: 36415; 71045; 71045-26; 71046; 71046-26; 80048; 81001; 83605; 84484; 85025; 85027; 87040; 87070; 87077; 87186; 93005; 96360; 96361; 99284; 99285-25; A9270-GY; C9113; J0131; J0690; J1650; J2185; J3370; J3490; J7030; J7040; J7050; J7120